=== PATIENT | male | born 1970 | race Caucasian/White ===

== ENCOUNTER 2018-03-07 10:35 | Emergency (ER) | payer BC ==
[2018-03-07 10:50] VITALS: BP 135/77
--- NOTE | 2018-03-07 11:25 | EDM.PDOC ---
ED HPI GENERAL MEDICAL PROBLEM - General Chief Complaint: Back Pain or Injury Stated Complaint: back pain, left leg pain Time Seen by Provider: 03/07/18 11:10 Source of Information: Reports: Patient History Limitations: Reports: No Limitations - History of Present Illness INITIAL COMMENTS - FREE TEXT/NARRATIVE: Patient is a 47-year-old male who is seen in the ER with chief complaint of lower back pain at the level of L3 radiating down the left leg , his pain at worse a 7 out of 10 while at resting down to 0. Patient states that about a month and a half ago on the last he was at work and walking to the car slipped and fell on his knees got up and proceeded to walk to the car he denies immediate pain at that time but does admit that the next couple days he developed lower back pain but was able to continued functioning he has been seening the chiropractor with some immediate success Onset: Gradual Duration: Week(s):, Chronic Location: Reports: Back Quality: Reports: Ache, Stabbing Severity: Moderate Improves with: Reports: Rest, Other (Biofreeze) Worsens with: Reports: Movement Context: Reports: Activity Associated Symptoms: Reports: No Other Symptoms Treatments [employer]: Reports: Acetaminophen, Cold Therapy, NSAIDS Lumbar Pain Score (Numeric/FACES): 7 - Related Data Allergies Allergy/AdvReac Type Severity Reaction Status Date / Time Penicillins Allergy Rash Verified 03/07/18 10:36 Home Meds: Home Meds PARoxetine HCl [Paxil] 40 mg PO DAILY 10/20/14 [History] metFORMIN [Glucophage] 1,000 mg PO BID 10/20/14 [History] traZODone 100 mg PO BEDTIME 10/20/14 [History] Acetaminophen [Acetaminophen Extra Strength] 1,000 mg PO Q6H PRN 03/07/18 [ History] Dapagliflozin Propanediol [Farxiga] 10 mg PO DAILY 03/07/18 [History] Gabapentin [Neurontin] 300 mg PO BID 15 Days #30 capsule 03/07/18 [Rx] Lisinopril 1 tab PO DAILY 03/07/18 [History] Menthol [Biofreeze] 1 applic TP ASDIRECTED PRN 03/07/18 [History] Naproxen Sodium [Aleve] 220 mg PO DAILY PRN 03/07/18 [History] Ranitidine HCl [Zantac 75] 75 mg PO BID 03/07/18 [History] Past Medical History HEENT History: Reports: Allergic Rhinitis, Impaired Vision Cardiovascular History: Reports: Other (See Below) Other Cardiovascular History: lisnopril for DM II Respiratory History: Reports: None Gastrointestinal History: Reports: GI Bleed, PUD Genitourinary History: Reports: None Musculoskeletal History: Reports: Arthritis Neurological History: Reports: None Psychiatric History: Reports: Anxiety, Depression Endocrine/Metabolic History: Reports: Diabetes, Type II, Obesity/BMI 30+ Hematologic History: Reports: Blood Transfusion(s) Oncologic (Cancer) History: Reports: None - Infectious Disease History Infectious Disease History: Reports: Chicken Pox - Past Surgical History HEENT Surgical History: Reports: None Cardiovascular Surgical History: Reports: None Respiratory Surgical History: Reports: None GI Surgical History: Reports: Colonoscopy, EGD Social & Family History - Tobacco Use Smoking Status *Q: Never Smoker - Living Situation & Occupation Living situation: Reports: Occupation: Employed ED ROS GENERAL - Review of Systems Review Of Systems: See Below Constitutional: Reports: No Symptoms HEENT: Reports: No Symptoms Respiratory: Reports: No Symptoms Cardiovascular: Reports: No Symptoms Endocrine: Reports: No Symptoms GI/Abdominal: Reports: No Symptoms : Reports: No Symptoms Musculoskeletal: Reports: No Symptoms Skin: Reports: No Symptoms Neurological: Reports: Difficulty Walking, Other (Lower back pain radiculopathy down left leg) Psychiatric: Reports: No Symptoms Hematologic/Lymphatic: Reports: No Symptoms ED EXAM, GENERAL - Physical Exam Exam: See Below Exam Limited By: No Limitations General Appearance: Alert, WD/WN, No Apparent Distress Ears: Normal External Exam, Normal Canal, Hearing Grossly Normal, Normal TMs Ear Exam: Bilateral Ear: Auricle Normal, Canal Normal, TM normal Nose: Normal Inspection, Normal Mucosa, No Blood Throat/Mouth: Normal Inspection, Normal Lips, Normal Teeth, Normal Gums, Normal Oropharynx, Normal Voice, No Airway Compromise Head: Atraumatic, Normocephalic Neck: Normal Inspection, Supple, Non-Tender, Full Range of Motion Respiratory/Chest: No Respiratory Distress, Lungs Clear, Normal Breath Sounds, No Accessory Muscle Use, Chest Non-Tender Cardiovascular: Normal Peripheral Pulses, Regular Rate, Rhythm, No Edema, No Gallop, No JVD, No Murmur, No Rub GI/Abdominal: Normal Bowel Sounds, Soft, Non-Tender, No Organomegaly, No Distention, No Abnormal Bruit, No Mass (Male) Exam: Deferred Rectal (Males) Exam: Deferred Back Exam: Normal Inspection, Decreased Range of Motion ( left leg straight leg test positive at 30) Extremities: Normal Inspection, Normal Range of Motion, Non-Tender, Normal Capillary Refill, No Pedal Edema Neurological: Other (Positive straight leg at 30 left) Psychiatric: Normal Affect, Normal Mood Skin Exam: Warm, Dry, Intact, Normal Color, No Rash Lymphatic: No Adenopathy Course - Vital Signs Last Recorded V/S: Last Vital Signs Temp 98.4 F 03/07/18 10:45 Pulse 80 03/07/18 10:45 Resp 18 03/07/18 10:45 BP 135/77 03/07/18 10:45 Pulse Ox 97 03/07/18 10:45 - Orders/Labs/Meds Meds: Medications Discontinued Medications Generic Name Dose Route Start Last Admin Trade Name Evangelistq PRN Reason Stop Dose Admin Ketorolac Tromethamine 60 mg 03/07/18 11:27 03/07/18 11:31 Toradol IM 03/07/18 11:28 60 mg ONETIME ONE Administration Departure - Departure Time of Disposition: 11:35 Disposition: Home, Self-Care 01 Clinical Impression: Lower back pain Qualifiers: Chronicity: chronic Back pain laterality: left Sciatica presence: unspecified whether sciatica present Qualified Code(s): M54.5 - Low back pain - Discharge Information Prescriptions: Gabapentin [Neurontin] 300 mg PO BID 15 Days #30 capsule Instructions: Gabapentin capsules or tablets, Ketorolac injection, Back Exercises, Low Back Strain Referrals: Helen Fernandez NP [Primary Care Provider] - Forms: ED Department Discharge Care Plan Goals: Follow up with primary care doctor if pain continues. Take new medication as directed. Avoid Aleve, take Tylenol up to 4,000mg a day for up to 2 weeks. Ice and biofreeze to back.
[2018-03-07] MEDS ORDERED: Ketorolac 60 MG/2 ML SDV IM ONE (11:27)
== END 2018-03-07 11:55 | disposition home or self-care (01) ==
LOC: LL.ED 10:35
DX: M54.5 Low back pain (principal); E11.9 Type 2 diabetes mellitus without complications; Z88.0 Allergy status to penicillin; Z79.84 Long term (current) use of oral hypoglycemic drugs; Z79.899 Other long term (current) drug therapy
CPT/HCPCS: 96372; 99283; J1885

== ENCOUNTER 2019-05-29 21:14 | Emergency (ER) | payer BC ==
[2019-05-29] MEDS ORDERED: Sodium Chloride 0.9% 10 ML Syringe FLUSH PRN (21:16)
[2019-05-29] MEDS ORDERED: Sodium Chloride 0.9% 1,000 ML IV SCH (21:30)
[2019-05-29 21:32] VITALS: BP 148/78; PULSE 85
[2019-05-29 21:41] LABS: CHLORIDE,CL 102 mmol/L (98-107); SODIUM,NA 138 mmol/L (136-145)
--- NOTE | 2019-05-29 22:16 | EDM.PDOC ---
ED HPI GENERAL MEDICAL PROBLEM - General Chief Complaint: General Stated Complaint: overdone it in the heat, dont feel good Time Seen by Provider: 05/29/19 21:30 Source of Information: Reports: Patient History Limitations: Reports: No Limitations - History of Present Illness INITIAL COMMENTS - FREE TEXT/NARRATIVE: Patient was in the company picnic and overdid it feels tired week Onset: Today, Sudden Duration: Hour(s):, Constant Location: Reports: Generalized Quality: Reports: Ache Improves with: Reports: Rest Worsens with: Reports: Movement Associated Symptoms: Reports: Weakness - Related Data Allergies Allergy/AdvReac Type Severity Reaction Status Date / Time Penicillins Allergy Rash Verified 05/29/19 21:17 Home Meds: Home Meds PARoxetine HCl [Paxil] 40 mg PO DAILY 10/20/14 [History] metFORMIN [Glucophage] 1,000 mg PO BID 10/20/14 [History] traZODone 100 mg PO BEDTIME 10/20/14 [History] Acetaminophen [Acetaminophen Extra Strength] 1,000 mg PO Q6H PRN 03/07/18 [ History] Dapagliflozin Propanediol [Farxiga] 10 mg PO DAILY 03/07/18 [History] Lisinopril 1 tab PO DAILY 03/07/18 [History] Menthol [Biofreeze] 1 applic TP ASDIRECTED PRN 03/07/18 [History] Ranitidine HCl [Zantac 75] 75 mg PO BID 03/07/18 [History] Fluticasone Propionate [Flonase] 1 dose INH BID 05/29/19 [History] glipiZIDE [Glipizide Xl] 5 mg PO DAILY 05/29/19 [History] Past Medical History HEENT History: Reports: Allergic Rhinitis, Impaired Vision Cardiovascular History: Reports: Other (See Below) Other Cardiovascular History: lisnopril for DM II Respiratory History: Reports: None Gastrointestinal History: Reports: GI Bleed, PUD Genitourinary History: Reports: None Musculoskeletal History: Reports: Arthritis Neurological History: Reports: None Psychiatric History: Reports: Anxiety, Depression Endocrine/Metabolic History: Reports: Diabetes, Type II, Obesity/BMI 30+ Hematologic History: Reports: Blood Transfusion(s) Oncologic (Cancer) History: Reports: None - Infectious Disease History Infectious Disease History: Reports: Chicken Pox - Past Surgical History HEENT Surgical History: Reports: None Cardiovascular Surgical History: Reports: None Respiratory Surgical History: Reports: None GI Surgical History: Reports: Colonoscopy, EGD Social & Family History - Tobacco Use Smoking Status *Q: Never Smoker - Living Situation & Occupation Living situation: Reports: Occupation: Employed ED ROS GENERAL - Review of Systems Review Of Systems: See Below Constitutional: Reports: Weakness, Diaphoresis HEENT: Reports: No Symptoms Respiratory: Reports: No Symptoms Cardiovascular: Reports: No Symptoms Endocrine: Reports: No Symptoms GI/Abdominal: Reports: No Symptoms : Reports: No Symptoms Musculoskeletal: Reports: No Symptoms Skin: Reports: Diaphoresis Neurological: Reports: No Symptoms ED EXAM, GENERAL - Physical Exam Exam: See Below Exam Limited By: No Limitations General Appearance: Alert, WD/WN, No Apparent Distress Ears: Normal External Exam, Normal Canal, Hearing Grossly Normal, Normal TMs Ear Exam: Bilateral Ear: Auricle Normal, Canal Normal, TM normal Nose: Normal Inspection, Normal Mucosa, No Blood Throat/Mouth: Normal Inspection, Normal Lips, Normal Teeth, Normal Gums, Normal Oropharynx, Normal Voice, No Airway Compromise Head: Atraumatic Neck: Normal Inspection, Supple, Non-Tender, Full Range of Motion Respiratory/Chest: No Respiratory Distress, Lungs Clear, Normal Breath Sounds, No Accessory Muscle Use, Chest Non-Tender Cardiovascular: Normal Peripheral Pulses, Regular Rate, Rhythm, No Edema, No Gallop, No JVD, No Murmur, No Rub GI/Abdominal: Normal Bowel Sounds, Soft, Non-Tender, No Organomegaly, No Distention, No Abnormal Bruit, No Mass Back Exam: Normal Inspection, Full Range of Motion, NT Extremities: Normal Inspection, Normal Range of Motion, Non-Tender, Normal Capillary Refill, No Pedal Edema Skin Exam: Warm, Dry, Intact, Normal Color, No Rash, Diaphoretic Lymphatic: No Adenopathy Course - Vital Signs Last Recorded V/S: Last Vital Signs Temp 98.0 F 05/29/19 21:17 Pulse 85 05/29/19 21:17 Resp 20 05/29/19 21:17 BP 148/78 H 05/29/19 21:17 Pulse Ox 96 05/29/19 21:17 - Orders/Labs/Meds Orders: Active Orders 24 hr Category Date Time Status Sodium Chloride 0.9% [Normal Saline] 1,000 ml Med 05/29/19 21:30 Active IV ASDIRECTED Sodium Chloride 0.9% [Saline Flush] Med 05/29/19 21:16 Active 10 ml FLUSH ASDIRECTED PRN Saline Lock Insert [OM.PC] Stat Oth 05/29/19 21:17 Ordered Medication Orders Sodium Chloride (Normal Saline) 1,000 mls @ 250 mls/hr IV ASDIRECTED SARAH Last Admin: 05/29/19 21:28 Dose: 250 mls/hr Sodium Chloride (Saline Flush) 10 ml FLUSH ASDIRECTED PRN PRN Reason: Keep Vein Open Labs: Laboratory Tests 05/29/19 05/29/19 Range/Units 21:25 21:25 WBC 10.6 H (4.0-10.2) K/uL RBC 5.13 (4.33-5.41) M/uL Hgb 16.1 D (13.1-16.8) g/dL Hct 46.0 (39.0-49.0) % MCV 89.7 (84.0-98.0) fL MCH 31.4 (28.2-33.3) pg MCHC 35.0 (31.7-36.0) g/dL RDW 13.6 (11.2-14.1) % Plt Count 243 (150-350) K/uL Neut % (Auto) 62.1 (45.0-80.0) % Lymph % (Auto) 24.9 (10.0-50.0) % [place] % (Auto) 10.1 (2.0-14.0) % Eos % (Auto) 2.6 (0.0-5.0) % Baso % (Auto) 0.3 (0.0-2.0) % Neut # (Auto) 6.57 (1.40-7.00) K/uL Lymph # (Auto) 2.63 (0.50-3.50) K/uL [place] # (Auto) 1.07 H (0.00-1.00) K/uL Eos # (Auto) 0.28 (0.00-0.50) K/uL Baso # (Auto) 0.03 (0.00-0.20) K/uL Sodium 138 (136-145) mmol/L Potassium 4.1 (3.5-5.1) mmol/L Chloride 102 (98-107) mmol/L Carbon Dioxide 30.6 (21.0-32.0) mmol/L BUN 15 (7-18) mg/dL Creatinine 0.91 (0.51-1.17) mg/dL Est Cr Clr Drug Dosing 100.27 mL/min Estimated GFR (MDRD) > 60 mL/min Glucose 130 H (74-106) mg/dL Calcium 9.2 (8.5-10.1) mg/dL Meds: Medications Generic Name Dose Route Start Last Admin Trade Name Freq PRN Reason Stop Dose Admin Sodium Chloride 1,000 mls @ 250 mls/hr 05/29/19 21:30 05/29/19 22:27 Normal Saline IV 999 mls/hr ASDIRECTED SARAH Infusion Sodium Chloride 10 ml 05/29/19 21:16 Saline Flush FLUSH ASDIRECTED PRN Keep Vein Open Departure - Departure Time of Disposition: 23:08 Disposition: Home, Self-Care 01 Condition: Fair Clinical Impression: Dehydration - Discharge Information *PRESCRIPTION DRUG MONITORING PROGRAM REVIEWED*: No *COPY OF PRESCRIPTION DRUG MONITORING REPORT IN PATIENT JOSH: No Instructions: Dehydration, Adult, [id number] Referrals: Helen Fernandez NP [Primary Care Provider] - Forms: ED Department Discharge Care Plan Goals: Patient given 1 L of fluid after the fluid was sent patient was feeling much better went ahead and will discharge him home he is to take hydrate himself orally with electrolyte solutions such as Gatorade or G2 and water - My Orders Last 24 Hours: My Active Orders 05/29/19 21:16 Sodium Chloride 0.9% [Saline Flush] 10 ml FLUSH ASDIRECTED PRN 05/29/19 21:17 Saline Lock Insert [OM.PC] Stat 05/29/19 21:30 Sodium Chloride 0.9% [Normal Saline] 1,000 ml IV ASDIRECTED - Assessment/Plan Last 24 Hours: My Active Orders 05/29/19 21:16 Sodium Chloride 0.9% [Saline Flush] 10 ml FLUSH ASDIRECTED PRN 05/29/19 21:17 Saline Lock Insert [OM.PC] Stat 05/29/19 21:30 Sodium Chloride 0.9% [Normal Saline] 1,000 ml IV ASDIRECTED
== END 2019-05-29 23:20 | disposition home or self-care (01) ==
LOC: LL.ED 21:14
DX: E86.0 Dehydration (principal); E11.9 Type 2 diabetes mellitus without complications; Z88.0 Allergy status to penicillin; Z79.899 Other long term (current) drug therapy; Z79.84 Long term (current) use of oral hypoglycemic drugs
CPT/HCPCS: 36415; 80048; 85025; 96360; 96361; 99284; J7030

== ENCOUNTER 2019-12-11 17:50 | Emergency (ER) | payer BC ==
--- NOTE | 2019-12-11 18:23 | EDM.PDOC ---
ED HPI GENERAL MEDICAL PROBLEM - General Chief Complaint: ENT Problem Stated Complaint: sinus/ear pain Time Seen by Provider: 12/11/19 18:12 Source of Information: Reports: Patient History Limitations: Reports: No Limitations - History of Present Illness INITIAL COMMENTS - FREE TEXT/NARRATIVE: Patient comes in complaining of headache/runny nose/ear pain that started this morning. Main issue is the headache. Not responding to OTC treatment. People in home "passing colds" all winter to each other per patient. No fevers or chills. No sore throat. Starting to have dry cough. No chest pain. Denies GI changes such as nausea/ emesis/bowel changes. No abdominal or back discomfort. No UTI complaints or hematuria. No focal neuro changes/weakness/numbness. Headache Pain Score (Numeric/FACES): 9 - Related Data Allergies Allergy/AdvReac Type Severity Reaction Status Date / Time Penicillins Allergy Rash Verified 12/11/19 18:26 Home Meds: Home Meds PARoxetine HCl [Paxil] 40 mg PO DAILY 10/20/14 [History] metFORMIN [Glucophage] 1,000 mg PO BID 10/20/14 [History] traZODone 100 mg PO BEDTIME 10/20/14 [History] Acetaminophen [Acetaminophen Extra Strength] 1,000 mg PO Q6H PRN 03/07/18 [ History] Dapagliflozin Propanediol [Farxiga] 10 mg PO DAILY 03/07/18 [History] Lisinopril 1 tab PO DAILY 03/07/18 [History] Menthol [Biofreeze] 1 applic TP ASDIRECTED PRN 03/07/18 [History] Ranitidine HCl [Zantac 75] 75 mg PO BID 03/07/18 [History] Cyanocobalamin (Vitamin B12) [Vitamin B12] 1,000 mcg PO DAILY 05/29/19 [History] Fluticasone Propionate [Flonase] 1 dose INH BID 05/29/19 [History] glipiZIDE [Glipizide Xl] 5 mg PO DAILY 05/29/19 [History] Past Medical History HEENT History: Reports: Allergic Rhinitis, Impaired Vision Cardiovascular History: Reports: Other (See Below) Other Cardiovascular History: lisnopril for DM II Respiratory History: Reports: None Gastrointestinal History: Reports: GI Bleed, PUD Genitourinary History: Reports: None Musculoskeletal History: Reports: Arthritis Neurological History: Reports: None Psychiatric History: Reports: Anxiety, Depression Endocrine/Metabolic History: Reports: Diabetes, Type II, Obesity/BMI 30+ Hematologic History: Reports: Blood Transfusion(s) Oncologic (Cancer) History: Reports: None - Infectious Disease History Infectious Disease History: Reports: Chicken Pox - Past Surgical History HEENT Surgical History: Reports: None Cardiovascular Surgical History: Reports: None Respiratory Surgical History: Reports: None GI Surgical History: Reports: Colonoscopy, EGD Social & Family History - Tobacco Use Smoking Status *Q: Never Smoker - Alcohol Use Alcohol Use History: Yes Alcohol Use Frequency: Rarely - Recreational Drug Use Recreational Drug Use: No Drug Use in Last 12 Months: No - Living Situation & Occupation Living situation: Reports: Occupation: Employed ED ROS GENERAL - Review of Systems Review Of Systems: Comprehensive ROS is negative, except as noted in HPI. ED EXAM, GENERAL - Physical Exam Exam: See Below Exam Limited By: No Limitations General Appearance: Alert, WD/WN, No Apparent Distress Eye Exam: Bilateral Eye: EOMI, PERRL Ears: Normal External Exam, Normal Canal, Hearing Grossly Normal, Normal TMs Nose: No: Nasal Deformity, Nasal Swelling, Nasal Drainage Throat/Mouth: Normal Lips, Normal Oropharynx, Normal Voice, No Airway Compromise Head: Atraumatic, Normocephalic Neck: Normal Inspection, Supple, Non-Tender, Full Range of Motion. No: Lymphadenopathy (L), Lymphadenopathy (R) Respiratory/Chest: No Respiratory Distress, Lungs Clear, Normal Breath Sounds, No Accessory Muscle Use Cardiovascular: Regular Rate, Rhythm, No Murmur GI/Abdominal: Soft, Non-Tender, No Distention (Male) Exam: Deferred Rectal (Males) Exam: Deferred Back Exam: No: CVA Tenderness (L), CVA Tenderness (R), Muscle Spasm Extremities: Normal Capillary Refill Neurological: Alert, Oriented, Normal Cognition, Normal Gait, No Motor/Sensory Deficits Psychiatric: Normal Affect, Normal Mood Skin Exam: Warm, Dry, Intact, Normal Color Course - Vital Signs Last Recorded V/S: Last Vital Signs Temp 37.9 C 12/11/19 17:50 Pulse 108 H 12/11/19 17:50 Resp 20 12/11/19 17:50 BP 118/72 12/11/19 17:50 Pulse Ox 94 L 12/11/19 17:50 - Orders/Labs/Meds Meds: Medications Discontinued Medications Generic Name Dose Route Start Last Admin Trade Name Abraham PRN Reason Stop Dose Admin Ketorolac Tromethamine 30 mg 12/11/19 18:24 12/11/19 18:32 Toradol IVPUSH 12/11/19 18:25 30 mg ONETIME ONE Administration Sumatriptan Succinate 50 mg 12/11/19 18:24 12/11/19 18:32 Imitrex PO 12/11/19 18:25 50 mg ONETIME ONE Administration Tramadol HCl 50 mg 12/11/19 18:25 12/11/19 18:32 Ultram PO 12/11/19 18:26 50 mg ONETIME ONE Administration - Re-Assessments/Exams Free Text/Narrative Re-Assessment/Exam: Suspect early viral respiratory infection given today's development of headache/ nasal and sinus congestion/ear pain/cough. O2 sats 94%. Patient denies SOB/chest pain. Lung exam clear. Patient's main issue is wanting relief from headache. No history of migraines. No meningeal signs noted/patient able to touch chin to chest. Will treat with single doses of Toradol IM and PO Imitrex/Tramadol and see if this provides relief. Patient is to follow up tomorrow at clinic if headache returns and additional meds are desired. He is to follow up at ER if he has sudden worsening problems/neuro changes/stiff neck etc. Note for Bobcat given for tomorrow. Patient is agreeable with plan. Departure - Departure Time of Disposition: 18:45 Disposition: Home, Self-Care 01 Condition: Good Clinical Impression: Respiratory tract infection - Discharge Information *PRESCRIPTION DRUG MONITORING PROGRAM REVIEWED*: Not Applicable *COPY OF PRESCRIPTION DRUG MONITORING REPORT IN PATIENT JOSH: Not Applicable Instructions: Upper Respiratory Infection, Adult, Sinus Headache Referrals: PCP,None [Primary Care Provider] - Forms: ED Department Discharge Additional Instructions: Rest tonight. See how your symptoms are tomorrow. If headache returns/worsens follow up for recheck at clinic. If cold symptoms do not follow a normal viral course get rechecked (increased shortness of breath/no improvement within a week /etc) Sepsis Event Note - Focused Exam Vital Signs: Vital Signs Temp Pulse Resp BP Pulse Ox 12/11/19 17:50 37.9 C 108 H 20 118/72 94 L Date Exam was Performed: 12/11/19 Time Exam was Performed: 18:48
[2019-12-11] MEDS ORDERED: Ketorolac 30 MG/ML SDV IVPUSH ONE (18:24)
[2019-12-11] MEDS ORDERED: SUMAtriptan 50 MG Tab PO ONE (18:24)
[2019-12-11] MEDS ORDERED: traMADol 50 MG Tab PO ONE (18:25)
[2019-12-11 18:26] VITALS: BP 118/72; PULSE 108
== END 2019-12-11 18:55 | disposition home or self-care (01) ==
LOC: LL.ED 17:50
DX: J98.8 Other specified respiratory disorders (principal); E11.9 Type 2 diabetes mellitus without complications; E66.9 Obesity, unspecified; Z88.0 Allergy status to penicillin; Z79.84 Long term (current) use of oral hypoglycemic drugs
CPT/HCPCS: 96374; 99283-25; A9270-GY; J1885

== ENCOUNTER 2023-05-20 22:28 | Emergency (ER) | payer BC ==
[2023-05-20 22:33] VITALS: BP 135/82
[2023-05-20] MEDS: diphenhydrAMINE 50 MG/ML SDV ONE (22:35)
[2023-05-20] MEDS: diphenhydrAMINE 50 MG/ML SDV IM ONE (22:35)
[2023-05-20] MEDS: methylPREDNISolone Sodium Succinate 125 MG/2 ML SDV ONE (22:35)
[2023-05-20] MEDS: methylPREDNISolone Sodium Succinate 125 MG/2 ML SDV IM ONE (22:36)
[2023-05-20 23:22] VITALS: PULSE 72
== END 2023-05-20 23:15 | disposition home or self-care (01) ==
LOC: LL.ED 22:28
DX: L50.9 Urticaria, unspecified (principal); E11.9 Type 2 diabetes mellitus without complications; E66.9 Obesity, unspecified; Z79.899 Other long term (current) drug therapy; Z79.84 Long term (current) use of oral hypoglycemic drugs; Z88.0 Allergy status to penicillin
CPT/HCPCS: 96372; 99283; J1200; J2930

== ENCOUNTER 2025-07-06 08:25 | Day surgery (SDC) | payer BC ==
[~2025-07-06 08:25] MED LIST: Propofol 200 MG/20 ML SDV ONE; Sodium Chloride 0.9% 10 ML Syringe FLUSH PRN
[2025-07-06] MEDS: Lactated Ringers 1,000 ML IV SCH (09:30)
[2025-07-06 10:34] VITALS: BP 120/79; PULSE 95
== END 2025-07-06 10:53 | disposition home or self-care (01) ==
LOC: LL.SDS 08:25
PROVIDERS: ATTEND Surgery
DX: Z12.11 Encounter for screening for malignant neoplasm of colon (principal); I10 Essential (primary) hypertension; E11.9 Type 2 diabetes mellitus without complications; Z88.0 Allergy status to penicillin; Z79.84 Long term (current) use of oral hypoglycemic drugs; Z91.09 Other allergy status, other than to drugs and biological substances; Z79.899 Other long term (current) drug therapy; Z86.0100 Personal history of colon polyps, unspecified
CPT/HCPCS: 82947; J2704; J7120